=== PATIENT | female | born 1980 | race African-American/Black ===

== ENCOUNTER 2017-04-08 11:43 | Emergency (ER) | payer OTHER ==
[~2017-04-08] VITALS: Ht 180.3 cm; Wt 61.2 kg
[2017-04-08 12:02] VITALS: BP 104/64
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
[2017-04-08] MEDS ORDERED: IBUPROFEN600 MG ORAL (12:19)
[2017-04-08] MEDS ORDERED: ROBAXIN-750750 MG PO (12:19)
[2017-04-08 12:25] VITALS: BP 104/64
== END 2017-04-08 12:15 | disposition home or self-care (01) ==
LOC: EMR 12:13
DX: G44.209 Tension-type headache, unspecified, not intractable (principal); V43.62XA Car passenger injured in collision with other type car in traffic accident, initial encounter; Y92.410 Unspecified street and highway as the place of occurrence of the external cause; Z88.2 Allergy status to sulfonamides
CPT/HCPCS: 99284